=== PATIENT | female | born 1995 | race African-American/Black ===

== ENCOUNTER 2016-12-20 19:54 | Emergency (ER) | payer OTHER ==
[~2016-12-20] VITALS: Ht 165.1 cm; Wt 70.0 kg
[2016-12-20] MEDS ORDERED: ONDANSETRON HCL 4MG/2ML VIAL IV STA (20:24)
[2016-12-20] MEDS ORDERED: SODIUM CHLORIDE 0.9% 1,000 ML IV ONE (20:24)
[2016-12-20 21:01] LABS: BASOPHILS % 0.6 % (0.0-2.0); EOSINOPHILS % 1.8 % (0.0-5.0); HEMATOCRIT. 33.9 % (36.0-48.0); HEMOGLOBIN. 11.3 g/dL (12.0-16.0); LYMPHOCYTES % 30.7 % (20.0-50.0); MEAN CORPUSCULAR HEMOGLOBIN 26.6 pg (28.0-32.0); MEAN PLATELET VOLUME 7.3 fl (7.4-10.4); MONOCYTES % 6.5 % (2.0-8.0); NEUTROPHILS % 60.4 % (40.0-76.0); PLATELET 321 x1000/uL (130-400); RED BLOOD CELL COUNT 4.24 mill/uL (4.2-5.4); RED CELL DISTRIBUTION WIDTH 12.8 % (11.6-14.6)
[2016-12-20 21:08] LABS: CHLORIDE 107 mEq/L (98-107)
[2016-12-20 21:16] LABS: CARBON DIOXIDE 24 mEq/L (21-32); ETHANOL BLOOD < 10 mg/dL
[2016-12-20 21:19] LABS: HCG SCREEN NEGATIVE
[2016-12-20] MEDS ORDERED: POTASSIUM CHLORIDE 20MEQ TABLET SR PO ONE (22:30)
[2016-12-21 00:09] LABS: *AMPHETAMINES SCREEN URINE NEGATIVE (NEGATIVE); *BARBITURATES SCREEN URINE NEGATIVE (NEGATIVE); *BENZODIAZEPINES SCREEN URINE NEGATIVE (NEGATIVE); *COCAINE SCREEN URINE NEGATIVE (NEGATIVE); METHADONE URINE SCREEN NEGATIVE (NEGATIVE); OPIATES URINE SCREEN NEGATIVE (NEGATIVE); PHENCYCLIDINE URINE SCREEN NEGATIVE (NEGATIVE)
[2016-12-21 00:10] VITALS: BP 110/65
[2016-12-21 00:39] LABS: CANNABINOID URINE SCREEN PRESUMTIVE POSITIVE (NEGATIVE)
== END 2016-12-21 00:13 | disposition home or self-care (01) ==
LOC: ER 20:19
DX: T40.7X1A Poisoning by cannabis (derivatives), accidental (unintentional), initial encounter (principal); R41.82 Altered mental status, unspecified; E87.6 Hypokalemia; D50.9 Iron deficiency anemia, unspecified; Y92.018 Other place in single-family (private) house as the place of occurrence of the external cause
CPT/HCPCS: 36415; 80053; 80305; 81025; 82962; 84703; 85025; 96361; 96374; 99284; G0482; J2405; J7030; Z7610